=== PATIENT | female | born 1955 | race Caucasian/White ===

== ENCOUNTER 2025-04-21 04:53 | Observation (INO) ==
[2025-04-21 05:10] VITALS: BMI 28.1
--- NOTE | 2025-04-21 05:20 | DR.HTN ---
HPI <FADY RAMAN - Last Filed: 04/21/25 19:35> Time Seen Time Seen by Provider: 04/21/25 05:16 Primary Care Physician Primary Care Physician: Marycarmen Bowers HPI Comment HPI Comment: History as below. Complaints Chief Complaint Doctors Comments: Patient is 69yr old female in ER with headache, nausea with vomiting times one since last night. Pain worse today. Chief Complaint:: PT AMBULATORY IN ED WITH COMPLAINTS OF ELEVATED BP THROUGHOUT THE NIGHT WITH NAUSEA,HEADACHE AND INTERMITTENT CHEST PAINS. STATES SHE HAS A HX OF CHF AND WAS RECENTLY STARTED ON JARDIANCE HAS HAD SOME BILATERAL LEG SWELLING AND SOB. Self Treatment fo Chief Complaint: 0200:100MG LOSARTAN, 25MG METOPROLOL COVID-19 Coronavirus risk:travel/contact w/high risk person: No Has patient experienced Coronavirus symptoms: No Reviewed Nurses Notes Reviewed: Yes Source History Provided: Patient Mode of Arrival Mode of Arrival: Ambulatory Timing Onset of Chief Complaint: 04/21/25 PMH <FADY RAMAN - Last Filed: 04/21/25 19:35> PMH Past Medical History: Yes Past Medical History: Anxiety, Depression, Diabetes, Dyslipidemia, GERD, Gout, Hypertension and Hypothyroidism Past Surgical History: Yes Surgical History: Appendectomy, Cholecystectomy, Hysterectomy and Ortho Surgery Family History History of Family Medical Conditions: Yes Family Medical History: Cancer Travel Risk Coronavirus risk:travel/contact w/high risk person: No Has patient experienced Coronavirus symptoms: No Infectious screening Have you traveled outside the country in the last 6 months?: No Isolation: Standard ROS <FADY RAMAN - Last Filed: 04/21/25 19:35> Review of Systems Constitutional: No Symptoms Reported and See HPI; negative Fever Eyes: No Symptoms Reported ENTM: No Symptoms Reported and See HPI; negative Ear Pain, Nose Congestion or Throat Pain Respiratoy: No Symptoms Reported, See HPI, Moist Cough and Short of Breath Cardiovascular: No Symptoms Reported and See HPI Gastrointestinal/Abdominal: No Symptoms Reported and See HPI Genitourinary: No Symptoms Reported and See HPI Neurological: No Symptoms Reported and See HPI Musculoskeletal: No Symptoms Reported and See HPI Integumentary: No Symptoms Reported and See HPI Hematologic/Lymphatic: No Symptoms Reported Endocrine: No Symptoms Reported and See HPI Psychiatric: No Symptoms Reported and See HPI All Other Systems: Reviewed and Negative PE <FADY RAMAN - Last Filed: 04/21/25 19:35> Vital Signs Vitals: Vital Signs Temperature 98.0 F Pulse Rate 78 Pulse Rate 82 Pulse Rate 81 Pulse Rate 84 Pulse Rate 80 Pulse Rate 79 Pulse Rate 77 Pulse Rate 83 Pulse Rate 80 Pulse Rate 85 Pulse Rate 80 Pulse Rate 85 Pulse Rate 82 Pulse Rate 80 Pulse Rate 78 Pulse Rate 78 Pulse Rate 82 Pulse Rate 86 Respiratory Rate 24 Respiratory Rate 16 Respiratory Rate 32 Respiratory Rate 15 Respiratory Rate 20 Respiratory Rate 19 Respiratory Rate 26 Respiratory Rate 28 Respiratory Rate 20 Respiratory Rate 19 Respiratory Rate 15 Respiratory Rate 25 Respiratory Rate 13 Respiratory Rate 20 Respiratory Rate 20 Respiratory Rate 26 Respiratory Rate 23 Respiratory Rate 14 Respiratory Rate 15 Respiratory Rate 20 Blood Pressure 170/103 Blood Pressure 189/106 Blood Pressure 184/105 Blood Pressure 183/88 Blood Pressure 180/91 Blood Pressure 188/90 Blood Pressure 178/92 Blood Pressure 179/97 Blood Pressure 186/93 Blood Pressure 168/92 Blood Pressure 151/82 Blood Pressure 145/80 O2 Sat by Pulse Oximetry 99 O2 Sat by Pulse Oximetry 98 O2 Sat by Pulse Oximetry 97 O2 Sat by Pulse Oximetry 97 O2 Sat by Pulse Oximetry 97 O2 Sat by Pulse Oximetry 95 O2 Sat by Pulse Oximetry 96 O2 Sat by Pulse Oximetry 98 O2 Sat by Pulse Oximetry 96 O2 Sat by Pulse Oximetry 97 O2 Sat by Pulse Oximetry 97 O2 Sat by Pulse Oximetry 96 O2 Sat by Pulse Oximetry 97 O2 Sat by Pulse Oximetry 96 O2 Sat by Pulse Oximetry 97 O2 Sat by Pulse Oximetry 95 General Limitations: No Limitations General Appearance: Alert and In No Apparent Distress Head Head Exam: Normal Inspection Eyes Eye exam: Normal Appearance; negative Scleral Icterus or Conjunctival Injection ENT ENT Exam: Normal Exam, Normal Oropharynx, Normal External Ear Exam and TM's Normal Bilaterally Neck Neck Exam: Normal Inspection and Trachea Midline; negative Tenderness Chest Chest Inspection: Normal Inspection and Symmetric Chest Wall Rise; negative Tenderness Respiratory Respiratory Exam: Normal Lung Sounds Bilat; negative Accessory Muscle Use, Chest Wall Tenderness or Respiratory Distress Cardiovascular Cardiovascular Exam: Regular Rate, Normal Rhythm and Normal Heart Sounds; negative Systolic Murmur or Diastolic Murmur Abdominal Exam Abdominal Exam: Normal Inspection, Normal Bowel Sounds and Soft; negative Tenderness Extremities Extremities Exam: Normal Inspection and Normal Capillary Refill Back Back Exam: Normal Inspection; negative (R) CVA Tenderness or (L) CVA Tenderness Neurologic Neurological Exam: Alert, Oriented X3, CN II-XII Intact and Reflexes Normal; negative Motor Sensory Deficit Psychiatric Psychiatric Exam: Normal Affect and Normal Mood Skin Skin Exam: Warm and Intact <Adria Monk - Last Filed: 04/21/25 09:24> Vital Signs Vitals: Vital Signs Temperature 98.0 F Pulse Rate 78 Pulse Rate 82 Pulse Rate 81 Pulse Rate 84 Pulse Rate 80 Pulse Rate 79 Pulse Rate 77 Pulse Rate 83 Pulse Rate 80 Pulse Rate 85 Pulse Rate 80 Pulse Rate 85 Pulse Rate 82 Pulse Rate 80 Pulse Rate 78 Pulse Rate 78 Pulse Rate 82 Pulse Rate 86 Respiratory Rate 24 Respiratory Rate 16 Respiratory Rate 32 Respiratory Rate 15 Respiratory Rate 20 Respiratory Rate 19 Respiratory Rate 26 Respiratory Rate 28 Respiratory Rate 20 Respiratory Rate 19 Respiratory Rate 15 Respiratory Rate 25 Respiratory Rate 13 Respiratory Rate 20 Respiratory Rate 20 Respiratory Rate 26 Respiratory Rate 23 Respiratory Rate 14 Respiratory Rate 15 Respiratory Rate 20 Blood Pressure 170/103 Blood Pressure 189/106 Blood Pressure 184/105 Blood Pressure 183/88 Blood Pressure 180/91 Blood Pressure 188/90 Blood Pressure 178/92 Blood Pressure 179/97 Blood Pressure 186/93 Blood Pressure 168/92 Blood Pressure 151/82 Blood Pressure 145/80 O2 Sat by Pulse Oximetry 99 O2 Sat by Pulse Oximetry 98 O2 Sat by Pulse Oximetry 97 O2 Sat by Pulse Oximetry 97 O2 Sat by Pulse Oximetry 97 O2 Sat by Pulse Oximetry 95 O2 Sat by Pulse Oximetry 96 O2 Sat by Pulse Oximetry 98 O2 Sat by Pulse Oximetry 96 O2 Sat by Pulse Oximetry 97 O2 Sat by Pulse Oximetry 97 O2 Sat by Pulse Oximetry 96 O2 Sat by Pulse Oximetry 97 O2 Sat by Pulse Oximetry 96 O2 Sat by Pulse Oximetry 97 O2 Sat by Pulse Oximetry 95 MDM <FADY RAMAN - Last Filed: 04/21/25 19:35> Differential Diagnosis Differential Diagnosis: CHF ([place], PNEUMONIA, ), Hyertension, essential and Hypertensive urgency COURSE <FADY RAMAN - Last Filed: 04/21/25 19:35> Treatment Treatment: See orders done while patient was in ER. Patient, sign out to Dr. Monk at change of shift. Education/Counseling Education/Counseling: Patient and Family ROR <FADY RAMAN - Last Filed: 04/21/25 19:35> Labs Reviewed Laboratory Results Reviewed?: Yes 04/21/25 05:24 04/21/25 05:24 Laboratory: WBC 6.6 X10^3/uL (3.6-10.0) 04/21/25 05:24 RBC 3.66 X10^6/uL (3.5-5.4) 04/21/25 05:24 Hgb 10.9 g/dL (12.0-16.0) L 04/21/25 05:24 Hct 32.3 % (36.0-47.0) L 04/21/25 05:24 MCV 88.3 fL (80.0-100.0) 04/21/25 05:24 MCH 29.8 pg (27.0-34.0) 04/21/25 05:24 MCHC 33.8 g/dL (33.0-35.0) 04/21/25 05:24 RDW 18.0 % (11.6-16.5) H 04/21/25 05:24 Plt Count 318 X10^3/uL (150.0-450.0) 04/21/25 05:24 MPV 7.6 fL (7.4-11.0) 04/21/25 05:24 Neut % (Auto) 69.0 % (42.0-75.0) 04/21/25 05:24 Lymph % (Auto) 18.7 % (21.0-51.0) L 04/21/25 05:24 [place] % (Auto) 8.9 % (0.0-13.0) 04/21/25 05:24 Eos % (Auto) 2.6 % (0.9-2.9) 04/21/25 05:24 Baso % (Auto) 0.8 % (0.2-1.0) 04/21/25 05:24 Neut # (Auto) 4.5 x10^3/uL (2.2-4.8) 04/21/25 05:24 Lymph # (Auto) 1.2 X10^3/uL (1.3-2.9) L 04/21/25 05:24 [place] # (Auto) 0.6 x10^3/uL (0.3-0.8) 04/21/25 05:24 Eos # (Auto) 0.2 x10^3/uL (0.0-0.2) 04/21/25 05:24 Baso # (Auto) 0.1 X10^3/uL (0.0-0.1) 04/21/25 05:24 Absolute Nucleated RBC 0.1 /100WBC 04/21/25 05:24 Sodium 138 mmol/L (136-145) 04/21/25 05:24 Corrected Sodium TNP 04/21/25 05:24 Potassium 4.0 mmol/L (3.5-5.1) 04/21/25 05:24 Chloride 102 mmol/L (98-107) 04/21/25 05:24 Carbon Dioxide 22.9 mmol/L (21-32) 04/21/25 05:24 BUN 11 mg/dL (7-18) 04/21/25 05:24 Creatinine 0.97 mg/dL (0.55-1.02) 04/21/25 05:24 Est GFR (MDRD) Af Amer > 60 (>60) 04/21/25 05:24 Est GFR (MDRD) Non-Af > 60 (>60) 04/21/25 05:24 Glucose 81 mg/dL (65-99) 04/21/25 05:24 Calcium 9.8 mg/dL (8.5-10.1) 04/21/25 05:24 Corrected Calcium 10.4 mg/dL (8.5-10.1) H 04/21/25 05:24 Magnesium 1.8 mg/dL (2.0-2.9) L 04/21/25 07:10 Total Bilirubin 0.60 mg/dL (0.2-1.0) 04/21/25 05:24 AST 21 Units/L (15-37) 04/21/25 05:24 ALT 19 Units/L (12-78) 04/21/25 05:24 Alkaline Phosphatase 87 Units/L (46-116) 04/21/25 05:24 Creatine Kinase 112 Units/L (26-192) 04/21/25 05:24 Troponin I High Sens 109.5 ng/L (4.0-60.0) H* 04/21/25 07:10 B-Natriuretic Peptide 212 pg/mL (0-79) H 04/21/25 05:24 Total Protein 7.1 g/dL (6.4-8.2) 04/21/25 05:24 Albumin 3.2 g/dL (3.4-5.0) L 04/21/25 05:24 Globulin 3.9 g/dL (2.5-4.5) 04/21/25 05:24 Albumin/Globulin Ratio 0.8 Ratio (1.1-2.1) L 04/21/25 05:24 XRAY XRAY Interpreted by: Radiologist (Report noted.) and Self <Adria Monk - Last Filed: 04/21/25 09:24> Labs Reviewed Laboratory: WBC 6.6 X10^3/uL (3.6-10.0) 04/21/25 05:24 RBC 3.66 X10^6/uL (3.5-5.4) 04/21/25 05:24 Hgb 10.9 g/dL (12.0-16.0) L 04/21/25 05:24 Hct 32.3 % (36.0-47.0) L 04/21/25 05:24 MCV 88.3 fL (80.0-100.0) 04/21/25 05:24 MCH 29.8 pg (27.0-34.0) 04/21/25 05:24 MCHC 33.8 g/dL (33.0-35.0) 04/21/25 05:24 RDW 18.0 % (11.6-16.5) H 04/21/25 05:24 Plt Count 318 X10^3/uL (150.0-450.0) 04/21/25 05:24 MPV 7.6 fL (7.4-11.0) 04/21/25 05:24 Neut % (Auto) 69.0 % (42.0-75.0) 04/21/25 05:24 Lymph % (Auto) 18.7 % (21.0-51.0) L 04/21/25 05:24 [place] % (Auto) 8.9 % (0.0-13.0) 04/21/25 05:24 Eos % (Auto) 2.6 % (0.9-2.9) 04/21/25 05:24 Baso % (Auto) 0.8 % (0.2-1.0) 04/21/25 05:24 Neut # (Auto) 4.5 x10^3/uL (2.2-4.8) 04/21/25 05:24 Lymph # (Auto) 1.2 X10^3/uL (1.3-2.9) L 04/21/25 05:24 [place] # (Auto) 0.6 x10^3/uL (0.3-0.8) 04/21/25 05:24 Eos # (Auto) 0.2 x10^3/uL (0.0-0.2) 04/21/25 05:24 Baso # (Auto) 0.1 X10^3/uL (0.0-0.1) 04/21/25 05:24 Absolute Nucleated RBC 0.1 /100WBC 04/21/25 05:24 Sodium 138 mmol/L (136-145) 04/21/25 05:24 Corrected Sodium TNP 04/21/25 05:24 Potassium 4.0 mmol/L (3.5-5.1) 04/21/25 05:24 Chloride 102 mmol/L (98-107) 04/21/25 05:24 Carbon Dioxide 22.9 mmol/L (21-32) 04/21/25 05:24 BUN 11 mg/dL (7-18) 04/21/25 05:24 Creatinine 0.97 mg/dL (0.55-1.02) 04/21/25 05:24 Est GFR (MDRD) Af Amer > 60 (>60) 04/21/25 05:24 Est GFR (MDRD) Non-Af > 60 (>60) 04/21/25 05:24 Glucose 81 mg/dL (65-99) 04/21/25 05:24 Calcium 9.8 mg/dL (8.5-10.1) 04/21/25 05:24 Corrected Calcium 10.4 mg/dL (8.5-10.1) H 04/21/25 05:24 Magnesium 1.8 mg/dL (2.0-2.9) L 04/21/25 07:10 Total Bilirubin 0.60 mg/dL (0.2-1.0) 04/21/25 05:24 AST 21 Units/L (15-37) 04/21/25 05:24 ALT 19 Units/L (12-78) 04/21/25 05:24 Alkaline Phosphatase 87 Units/L (46-116) 04/21/25 05:24 Creatine Kinase 112 Units/L (26-192) 04/21/25 05:24 Troponin I High Sens 109.5 ng/L (4.0-60.0) H* 04/21/25 07:10 B-Natriuretic Peptide 212 pg/mL (0-79) H 04/21/25 05:24 Total Protein 7.1 g/dL (6.4-8.2) 04/21/25 05:24 Albumin 3.2 g/dL (3.4-5.0) L 04/21/25 05:24 Globulin 3.9 g/dL (2.5-4.5) 04/21/25 05:24 Albumin/Globulin Ratio 0.8 Ratio (1.1-2.1) L 04/21/25 05:24 Opioid <FADY RAMAN - Last Filed: 04/21/25 19:35> Opioid Risk Tool Age (Greyson box if 16-45): No History of Preadolescent Sexual Abuse: No Total: 0 Total Score Risk Category: Low Risk Copyright: Kory PETTIT predicting aberrant behaviors <Adria Monk - Last Filed: 04/21/25 09:24> Opioid Risk Tool Total: 0 Total Score Risk Category: Low Risk Discharge Plan Diagnosis Discharge Problem: Elevated troponin Chest pain Qualifiers: Chest pain type: precordial pain Qualified Code(s): R07.2 - Precordial pain Hypertension Qualifiers: Hypertension type: primary hypertension Qualified Code(s): I10 - Essential (primary) hypertension Nausea & vomiting Qualifiers: Vomiting type: unspecified Qualified Code(s): R11.2 - Nausea with vomiting, unspecified CHF (congestive heart failure) Qualifiers: Heart failure type: combined systolic and diastolic Heart failure chronicity: a cute Qualified Code(s): I50.41 - Acute combined systolic (congestive) and diastolic (congestive) heart failure Discharge Plan Patient Disposition: ADMITTED INPATIENT Condition: Stable ADDITIONAL NOTES <Adria Monk - Last Filed: 04/21/25 09:24> Additional Notes Additional Notes: Pt has no chest pain on re-exam. States she has had 2-3 episodes of chest pain since 2 am, each lasting 1-2 min, mild chest pressure. Denies any pain at this time. EKG shows no signs of ischemia. 1st and 2nd troponin elevated at 100 & 108, spoke with Dr Nowak who agrees to consult on pt after admission. Spoke with Dr Mckee who agrees to admit pt.
--- NOTE | 2025-04-21 05:32 | EKG ---
Test Reason : chest pain Blood Pressure : */* mmHG Vent. Rate : 78 BPM Atrial Rate : 78 BPM P-R Int : 142 ms QRS Dur : 108 ms QT Int : 396 ms P-R-T Axes : 22 -18 3 degrees QTc Int : 451 ms Normal sinus rhythm Moderate voltage criteria for LVH, may be normal variant ( R in aVL , Dieter product ) Septal infarct , age undetermined Abnormal ECG No previous ECGs available Confirmed by Eliud Nowak MD ([id number]) on 04/21/2025 7:05:25 AM Referred By: Confirmed By: Eliud Nowak MD
[2025-04-21 05:34] LABS: BASOPHILS # (AUTO) 0.1 X10^3/uL (0.0-0.1); BASOPHILS % (AUTO) 0.8 % (0.2-1.0); EOSINOPHILS # (AUTO) 0.2 x10^3/uL (0.0-0.2); EOSINOPHILS % (AUTO) 2.6 % (0.9-2.9); HEMATOCRIT 32.3 % (36.0-47.0); HEMOGLOBIN 10.9 g/dL (12.0-16.0); LYMPHOCYTES # (AUTO) 1.2 X10^3/uL (1.3-2.9); LYMPHOCYTES % (AUTO) 18.7 % (21.0-51.0); MEAN CORPUSCULAR HEMOGLOBIN 29.8 pg (27.0-34.0); MEAN CORPUSCULAR HGB CONC 33.8 g/dL (33.0-35.0); MEAN CORPUSCULAR VOLUME 88.3 fL (80.0-100.0); MEAN PLATELET VOLUME 7.6 fL (7.4-11.0); MONOCYTES # (AUTO) 0.6 x10^3/uL (0.3-0.8); MONOCYTES % (AUTO) 8.9 % (0.0-13.0); NEUTROPHILS # (AUTO) 4.5 x10^3/uL (2.2-4.8); PLATELET COUNT 318 X10^3/uL (150.0-450.0); RED BLOOD COUNT 3.66 X10^6/uL (3.5-5.4); WHITE BLOOD COUNT 6.6 X10^3/uL (3.6-10.0)
[2025-04-21 05:59] LABS: ALANINE AMINOTRANSFERASE 19 Units/L (12-78); ALBUMIN 3.2 g/dL (3.4-5.0); ALKALINE PHOSPHATASE 87 Units/L (46-116); ASPARTATE AMINO TRANSFERASE 21 Units/L (15-37); BLOOD UREA NITROGEN 11 mg/dL (7-18); CALCIUM 9.8 mg/dL (8.5-10.1); CARBON DIOXIDE 22.9 mmol/L (21-32); CHLORIDE 102 mmol/L (98-107); COR CA(FOR HYPOALB) 10.4 mg/dL (8.5-10.1); CREATINE KINASE 112 Units/L (26-192); CREATININE 0.97 mg/dL (0.55-1.02); GLUCOSE 81 mg/dL (65-99); SODIUM 138 mmol/L (136-145); TOTAL PROTEIN 7.1 g/dL (6.4-8.2); eGFR NON BLACK RACES > 60 (>60)
[2025-04-21] MEDS: PERCOCET TAB 5/325 MG PO ONE (07:13)
[2025-04-21] MEDS: COZAAR PO ONE (07:17)
--- NOTE | 2025-04-21 07:28 | CT ---
EXAM: BRAIN W/O CON HISTORY: PT AMBULATORY IN ED WITH COMPLAINTS OF ELEVATED BP THROUGHOUT THE NIGHT WITH NAUSEA,HEADACHE ; CHF, GERD, DM, HTN SX: APPY, DEACON, HYST, ORTHO COMPARISON: 05/23/2023 TECHNIQUE: CT of the head obtained without IV contrast. Sagittal and coronal reformatted images were performed. Dose reduction techniques including Automated Exposure Control (AEC) and adjustment of mA and kV were utilized. FINDINGS: No evidence of acute territorial infarct. No acute intracranial hemorrhage. No evidence of intracranial mass or midline shift. No hydrocephalus. No abnormal intra or extra-axial fluid collections. Chronic small vessel ischemic changes and global volume loss with commensurate ventricular dilatation. The calvaria is intact. The bilateral mastoid air cells and visualized paranasal sinuses are well pneumatized. The bilateral orbits are unremarkable. IMPRESSION: No acute intracranial findings. THIS IS AN ELECTRONICALLY VERIFIED FINAL REPORT 04/21/2025 7:20 AM - Electronically signed by Sarbijt Sloan MD
[2025-04-21] MEDS: MAG-OX TAB PO ONE (08:10)
[2025-04-21] MEDS: PROTONIX INJ 40 MG VIAL IVP ONE (08:31)
[2025-04-21] MEDS: APRESOLINE INJ 20 MG VIAL IVP ONE (08:33)
--- NOTE | 2025-04-21 08:47 | RAD ---
EXAM: CHEST, 1 VIEW HISTORY: CHEST PAIN; DM, GERD, HTN SX: APPY, DEACON, HYST, ORTHO COMPARISON: 02/13/2025 TECHNIQUE: AP portable FINDINGS: Prominent cardiac silhouette, accentuated by AP technique. No focal consolidation, pleural effusion, or visible pneumothorax. IMPRESSION: No acute cardiopulmonary findings. THIS IS AN ELECTRONICALLY VERIFIED FINAL REPORT 04/21/2025 8:43 AM - Electronically signed by Anthony Martinez MD
[2025-04-21] MEDS: ZOFRAN INJ 4 MG VIAL IVP ONE (09:23)
[2025-04-21] MEDS ORDERED: NS 1,000 ML IV 1,000 ML ONE (11:05)
[2025-04-21] MEDS: NS 1,000 ML IV 1,000 ML IV SCH (11:19)
--- NOTE | 2025-04-21 11:20 | EKG ---
Test Reason : Elevated Troponin Blood Pressure : */* mmHG Vent. Rate : 77 BPM Atrial Rate : 77 BPM P-R Int : 152 ms QRS Dur : 106 ms QT Int : 402 ms P-R-T Axes : 57 -16 -9 degrees QTc Int : 454 ms Normal sinus rhythm Moderate voltage criteria for LVH, may be normal variant ( R in aVL , Dieter product ) T wave abnormality, consider anterolateral ischemia Abnormal ECG When compared with ECG of 21-APR-2025 05:28, Inverted T waves have replaced nonspecific T wave abnormality in Anterior leads Confirmed by Eliud Nowak MD ([id number]) on 04/21/2025 11:22:56 AM Referred By: Confirmed By: Eliud Nowak MD
[2025-04-21] MEDS ORDERED: APRESOLINE INJ 20 MG VIAL IVP PRN (12:52)
--- NOTE | 2025-04-21 13:21 | DR.CONSULT ---
CONSULT Consultation for Day of: Date: 04/21/25 Chief Complaint Chief Complaint: htn/cp Allergies Allergies Allergy/AdvReac Type Severity Reaction Status Date / Time Sulfa (Sulfonamide AdvReac Verified 04/21/25 05:10 Antibiotics) History of Present Illness History of Present Illness: 69 yo female- got stent to ostial r[facility] ( [facility])- came back after stent w cp/high bp and positive trop just like today- cp lasted 10 min- bp 190 for 3 days- very sob- takes meds as she feels- on arb at 100 bid- higher than recommended dose- also on bb/ccb for htn- nabil notes states hctz but not on her list- states asa/plavix/statin/zetia as well. ekg : minor t abl, Past Medical History Past Medical History: Anxiety, Depression, Diabetes, Dyslipidemia, GERD, Gout, Hypertension and Hypothyroidism Past Surgical History Surgical History: Appendectomy, Cholecystectomy, Hysterectomy, Joint Replacement and Tonsillectomy Family History Family Medical History: Cancer Social History Type of Tobacco Use: None Alcohol Use: None Drug Use: None Medications Home Medications: Sulfa (Sulfonamide Antibiotics) Adverse Reaction (Verified 04/21/25 05:10) CONTINUE taking the following medications allopurinol 300 mg tablet 300 mg PO QDAY 04/21/25 [History] aspirin 81 mg tablet 81 mg PO QDAY 04/21/25 [History] benzonatate 200 mg capsule 200 mg PO DAILY PRN 04/21/25 [History] budesonide 160 mcg-glycopyr 9 mcg-formot 4.8 mcg/actuation HFA inhaler (Breztri Aerosphere) 2 inh inhalation QAM AND QPM 04/21/25 [History] bupropion HCl 300 mg 24 hr tablet, extended release (Wellbutrin XL) 300 mg PO QAM 04/21/25 [History] buspirone 15 mg tablet 7.5 mg PO BID PRN 04/21/25 [History] clopidogrel 75 mg tablet (Plavix) 75 mg PO QDAY 04/21/25 [History] coQ10 (ubiquinol) 200 mg capsule 800 mg PO QDAY 04/21/25 [History] empagliflozin 25 mg tablet (Jardiance) 25 mg PO QDAY 04/21/25 [History] ergocalciferol (vitamin D2) 1,250 mcg (50,000 unit) capsule (Vitamin D2) 1,250 mcg PO QWEEK 04/21/25 [History] ezetimibe 10 mg tablet (Zetia) 10 mg PO QDAY 04/21/25 [History] hydrochlorothiazide 50 mg tablet 50 mg PO DAILY PRN 04/21/25 [History] levalbuterol tartrate 45 mcg/actuation aerosol inhaler (Xopenex HFA) 1 puff inhalation Q6H PRN 04/21/25 [History] levocetirizine 5 mg tablet (Xyzal) 5 mg PO QDAY PRN 04/21/25 [History] levothyroxine 88 mcg tablet (Synthroid) 88 mcg PO QAM 04/21/25 [History] liothyronine 5 mcg tablet 5 mcg PO QAM 04/21/25 [History] losartan 100 mg tablet 100 mg PO BID 04/21/25 [History] metformin 500 mg tablet 500 mg PO BID 04/21/25 [History] pregabalin 150 mg capsule (Lyrica) 150 mg PO TID 04/21/25 [History] rosuvastatin 10 mg tablet (Crestor) 10 mg PO QDAY 04/21/25 [History] tirzepatide 15 mg/0.5 mL subcutaneous pen injector (Mounjaro) 15 mg subcut QWEEK 04/21/25 [History] tolterodine 4 mg capsule,extended release 24 hr (Detrol LA) 4 mg PO QDAY PRN 04/21/25 [History] Physical Exam Vital Signs: Vital Signs Temperature 97.8 F Temperature 97.8 F Pulse Rate [Bilateral Radial] 76 Pulse Rate [Bilateral Radial] 76 Pulse Rate 79 Pulse Rate 76 Pulse Rate 75 Pulse Rate 80 Pulse Rate 80 Pulse Rate 85 Pulse Rate 77 Pulse Rate 80 Pulse Rate 78 Pulse Rate 82 Pulse Rate 81 Pulse Rate 84 Pulse Rate 80 Pulse Rate 79 Pulse Rate 77 Pulse Rate 83 Pulse Rate 80 Pulse Rate 85 Pulse Rate 80 Pulse Rate 85 Pulse Rate 82 Pulse Rate 80 Pulse Rate 78 Pulse Rate 78 Pulse Rate 82 Respiratory Rate 20 Respiratory Rate 20 Respiratory Rate 20 Respiratory Rate 22 Respiratory Rate 14 Respiratory Rate 21 Respiratory Rate 15 Respiratory Rate 14 Respiratory Rate 32 Respiratory Rate 22 Respiratory Rate 26 Respiratory Rate 24 Respiratory Rate 16 Respiratory Rate 32 Respiratory Rate 15 Respiratory Rate 20 Respiratory Rate 19 Respiratory Rate 26 Respiratory Rate 28 Respiratory Rate 20 Respiratory Rate 19 Respiratory Rate 15 Respiratory Rate 25 Respiratory Rate 13 Respiratory Rate 20 Respiratory Rate 20 Respiratory Rate 26 Respiratory Rate 23 Respiratory Rate 14 Respiratory Rate 15 Blood Pressure [Left Arm] 165/83 Blood Pressure [Left Arm] 165/83 Blood Pressure 180/84 Blood Pressure 178/87 Blood Pressure 171/84 Blood Pressure 176/87 Blood Pressure 171/86 Blood Pressure 182/103 Blood Pressure 170/103 Blood Pressure 189/106 Blood Pressure 184/105 Blood Pressure 183/88 Blood Pressure 180/91 Blood Pressure 188/90 Blood Pressure 178/92 Blood Pressure 179/97 Blood Pressure 186/93 Blood Pressure 168/92 Blood Pressure 151/82 O2 Sat by Pulse Oximetry 97 O2 Sat by Pulse Oximetry 97 O2 Sat by Pulse Oximetry 99 O2 Sat by Pulse Oximetry 98 O2 Sat by Pulse Oximetry 97 O2 Sat by Pulse Oximetry 97 O2 Sat by Pulse Oximetry 97 O2 Sat by Pulse Oximetry 95 O2 Sat by Pulse Oximetry 96 O2 Sat by Pulse Oximetry 98 O2 Sat by Pulse Oximetry 96 O2 Sat by Pulse Oximetry 97 O2 Sat by Pulse Oximetry 97 O2 Sat by Pulse Oximetry 96 O2 Sat by Pulse Oximetry 97 O2 Sat by Pulse Oximetry 96 O2 Sat by Pulse Oximetry 97 alert ox3 nad b bruits clera lungs rrr soft faisal no edema labs: hct 32 k 4.0 cr0.97 bnp 212 trops 100-109-112 cxr: nad brain ct: nad Plan (1) Elevated troponin: Status: Acute (2) Hypertension: Status: Acute Qualifiers: Hypertension type: primary hypertension Qualified Code(s): I10 - Essential (primary) hypertension Plan: resume meds- bb/arb/ccb- would like to cut back arb to 100mg- and push other meds- adding back diuretic next to come- hydralazine prn > 160 (3) Chest pain: Status: Acute Qualifiers: Chest pain type: precordial pain Qualified Code(s): R07.2 - Precordial pain Narrative Support Text: 10 min of cp- flat trops- ns t on ekg- not felt to be injury (4) Elevated brain natriuretic peptide (BNP) level: Status: Acute Narrative Support Text: get bp down- consider adding back hctz for htn/bnp (5) Carotid bruit: Status: Acute Plan: check dopplers
[2025-04-21] MEDS: DUONEB 0.5 MG/3 MG (3 mL) NEB SCH (13:39)
--- NOTE | 2025-04-21 15:16 | VAS ---
EXAM: CAROTID US HISTORY: HTN, ELEVATED TROPONIN; COMPARISON: None available. TECHNIQUE: Multiple kumar scale, duplex and color flow Doppler images of the right and left carotid arterial system were obtained. The vertebral arterial system was evaluated as well. FINDINGS: Nonocclusive color flow Doppler is seen throughout the right and left carotid arterial system. Abnormally elevated velocities are seen within the right internal carotid artery in the severe or 70-90% stenosis range. Abnormally elevated carotid velocities are seen within the left CCA arteries in the 50-69% stenosis range. There is [id number] atherosclerotic plaque formation of the bilateral carotid bulbs and proximal ICAs with associated intimal thickening but without evidence for any additional high-grade stenosis (>70%) or occlusion of the carotid arteries. The right and left vertebral artery demonstrate antegrade flow. There is patent flow and normal duplex waveforms within the right and left external carotid arteries. Peak right ICA velocity: 236 centimeter/seconds. Peak right CCA velocity: 54 centimeter/seconds. Right ICA to CCA ratio: 5.1. Peak left ICA velocity: 150 centimeter/seconds. Peak left CCA velocity: 63 centimeter/seconds. Left ICA to CCA ratio: 2.8. IMPRESSION: Abnormally elevated velocities are seen within the right internal carotid artery in the severe or 70-90% stenosis range. Abnormally elevated carotid velocities are seen within the left CCA arteries in the 50-69% stenosis range. There is [id number] atherosclerotic plaque formation of the bilateral carotid bulbs and proximal ICAs with associated intimal thickening but without evidence for any additional high-grade stenosis (>70%) or occlusion of the carotid arteries. THIS IS AN ELECTRONICALLY VERIFIED FINAL REPORT 04/21/2025 3:12 PM - Electronically signed by Abdiaziz Babcock MD
[2025-04-21] MEDS: PROCARDIA XL 24-HR PO SCH (16:15)
[2025-04-21] MEDS: LYRICA CAP 150 mg PO SCH (16:15)
[2025-04-21] MEDS ORDERED: TYLENOL 325 MG TAB PO ONE (16:35)
[2025-04-21] MEDS: TYLENOL 325 MG TAB PO PRN (16:40)
--- NOTE | 2025-04-21 16:55 | EKG ---
Test Reason : Elevated Troponin Blood Pressure : */* mmHG Vent. Rate : 77 BPM Atrial Rate : 77 BPM P-R Int : 120 ms QRS Dur : 102 ms QT Int : 426 ms P-R-T Axes : 21 -14 -8 degrees QTc Int : 482 ms Normal sinus rhythm Minimal voltage criteria for LVH, may be normal variant ( [place] product ) Borderline ECG When compared with ECG of 21-APR-2025 11:01, T wave inversion no longer evident in Lateral leads Confirmed by Eliud Nowak MD ([id number]) on 04/21/2025 7:25:06 PM Referred By: Confirmed By: Eliud Nowak MD
[2025-04-21] MEDS: PULMICORT NEB TX 0.5 MG NEB SCH (20:03)
[2025-04-21] MEDS: COZAAR PO SCH (21:21)
[2025-04-21] MEDS: GLUCOPHAGE PO SCH (21:21)
[2025-04-21] MEDS: GLUCOPHAGE ONE (21:22)
--- NOTE | 2025-04-21 22:26 | EKG ---
Test Reason : Elevated Troponin Blood Pressure : */* mmHG Vent. Rate : 75 BPM Atrial Rate : 75 BPM P-R Int : 142 ms QRS Dur : 108 ms QT Int : 434 ms P-R-T Axes : 32 -23 -23 degrees QTc Int : 484 ms Normal sinus rhythm Moderate voltage criteria for LVH, may be normal variant ( R in aVL , Dieter product ) T wave abnormality, consider anterolateral ischemia Prolonged QT Abnormal ECG When compared with ECG of 21-APR-2025 16:32, T wave inversion now evident in Lateral leads Confirmed by Eliud Nowak MD ([id number]) on 04/22/2025 5:35:35 AM Referred By: Confirmed By: Eliud Nowak MD
[2025-04-21] MEDS: RESTORIL CAP 15 MG PO PRN (22:52)
[2025-04-22 06:06] LABS: EOSINOPHILS # (AUTO) 0.1 x10^3/uL (0.0-0.2); EOSINOPHILS % (AUTO) 3.9 % (0.9-2.9); HEMATOCRIT 28.6 % (36.0-47.0); HEMOGLOBIN 9.6 g/dL (12.0-16.0); LYMPHOCYTES # (AUTO) 1.4 X10^3/uL (1.3-2.9); LYMPHOCYTES % (AUTO) 40.7 % (21.0-51.0); MEAN CORPUSCULAR HEMOGLOBIN 29.9 pg (27.0-34.0); MEAN CORPUSCULAR HGB CONC 33.8 g/dL (33.0-35.0); MEAN CORPUSCULAR VOLUME 88.5 fL (80.0-100.0); MEAN PLATELET VOLUME 7.7 fL (7.4-11.0); MONOCYTES # (AUTO) 0.5 x10^3/uL (0.3-0.8); MONOCYTES % (AUTO) 12.9 % (0.0-13.0); NEUTROPHILS # (AUTO) 1.5 x10^3/uL (2.2-4.8); NEUTROPHILS % (AUTO) 41.5 % (42.0-75.0); PLATELET COUNT 283 X10^3/uL (150.0-450.0); RED BLOOD COUNT 3.23 X10^6/uL (3.5-5.4); RED CELL DISTRIBUTION WIDTH 17.2 % (11.6-16.5); WHITE BLOOD COUNT 3.5 X10^3/uL (3.6-10.0)
[2025-04-22 06:10] LABS: INR 1.04 (0.8-1.3)
--- NOTE | 2025-04-22 06:13 | RAD ---
EXAM: CHEST, 1 VIEW HISTORY: ELEVATED TROPONIN; DM, GERD, GOUT, HTN SX: APPY, DEACON, HYST, ORTHO COMPARISON: Prior study or studies were utilized for comparison during interpretation with the most relevant dated 04/21/2025 TECHNIQUE: CHEST, 1 VIEW FINDINGS: Chest: Lines and tubes: Cardiac leads overlie the chest. Mediastinum: Cardiac and mediastinal shadow is within normal limits for size and contour. Pulmonary vessels: No pulmonary vascular congestion. Lung isabel: No suspicious airspace opacity. Pleura: No effusion. No pneumothorax. Bones and soft tissues: No acute osseous or soft tissue abnormality. IMPRESSION: 1. No acute cardiopulmonary abnormality THIS IS AN ELECTRONICALLY VERIFIED FINAL REPORT 04/22/2025 6:10 AM - Electronically signed by Beni Chandra MD
[2025-04-22 06:25] LABS: ALANINE AMINOTRANSFERASE 16 Units/L (12-78); ALKALINE PHOSPHATASE 67 Units/L (46-116); ASPARTATE AMINO TRANSFERASE 14 Units/L (15-37); BLOOD UREA NITROGEN 9 mg/dL (7-18); CARBON DIOXIDE 24.2 mmol/L (21-32); CHLORIDE 107 mmol/L (98-107); CHOL/HDL RATIO 2.6 (0.0-5.0); CHOLESTEROL 74 mg/dL (0-200); COR CA(FOR HYPOALB) 9.8 mg/dL (8.5-10.1); CREATININE 0.91 mg/dL (0.55-1.02); GLUCOSE 79 mg/dL (65-99); HDL CHOLESTEROL 29 mg/dL (40-60); MAGNESIUM 1.6 mg/dL (2.0-2.9); POTASSIUM 3.6 mmol/L (3.5-5.1); SODIUM 142 mmol/L (136-145); TOTAL PROTEIN 6.8 g/dL (6.4-8.2); TRIGLYCERIDES 71 mg/dL (0-150); eGFR NON BLACK RACES > 60 (>60)
[2025-04-22] MEDS ORDERED: CONSULT PHARMACY - POTASSIUM & MAGNESIUM XX SCH ×2 (07:00→08:00)
[2025-04-22] MEDS: MAG-OX TAB ONE (07:03)
[2025-04-22] MEDS: ZOFRAN INJ 4 MG VIAL ONE (07:04)
[2025-04-22] MEDS: APRESOLINE INJ 20 MG VIAL ONE (07:04)
[2025-04-22] MEDS: PULMICORT NEB TX 0.5 MG NEB ONE (07:04)
[2025-04-22] MEDS: PROTONIX INJ 40 MG VIAL ONE (07:04)
[2025-04-22] MEDS: MAG-OX TAB PO SCH (08:31)
[2025-04-22] MEDS: FARXIGA PO SCH (08:31)
[2025-04-22] MEDS: CRESTOR TAB 10 MG PO SCH (08:32)
[2025-04-22] MEDS: K-DUR TAB 20 MEQ PO SCH (08:32)
[2025-04-22] MEDS: WELLBUTRIN XL 300 MG (DAILY) PO SCH (08:32)
[2025-04-22] MEDS: SYNTHROID 88 mcg TAB PO SCH (08:32)
[2025-04-22] MEDS: PLAVIX PO SCH (08:32)
[2025-04-22] MEDS: ASPIRIN EC 81 MG PO SCH (08:32)
[2025-04-22] MEDS: ZYLOPRIM PO SCH (08:32)
[2025-04-22] MEDS: GLUCOPHAGE ONE ×2 (08:33→22:04)
[2025-04-22] MEDS: ZETIA TAB 10 MG PO SCH (08:34)
[2025-04-22] MEDS: COZAAR PO SCH (08:34)
[2025-04-22] MEDS: TOPROL XL PO SCH (08:34)
[2025-04-22] MEDS: LIOTHYRONINE 5 MCG PO SCH (08:46)
[2025-04-22] MEDS ORDERED: COQ10 200 MG PO SCH (09:00)
[2025-04-22] MEDS ORDERED: ZyrTEC TAB 10 MG PO PRN (09:38)
[2025-04-22] MEDS ORDERED: BUSPAR PO PRN (09:38)
[2025-04-22] MEDS: MAGNESIUM SULFATE 1 GRAM/100 mL PREMIX 1 G/100 ML BAG IV SCH (10:01)
[2025-04-22] MEDS: DETROL LA 4 MG CAP EXT REL PO SCH (10:01)
--- NOTE | 2025-04-22 13:51 | NOTE.SOAP ---
Soap Note Note for Day of Date of Exam: 04/22/25 Subjective Data Subjective Data: no c/o Objective Data Objective Data: bp low after po losartan/procardia yesterday night- dopplers: > 70% r/50-69% left- Assessment Assessment: cad stent- recent trop bump- severe carotid disease on right/mod on left/htn r/o renal artery disease Plan Plan: arrange transfer in am [facility]/renals/carotids plus /minus carotid stenting in candidate
[2025-04-22] MEDS: PROCARDIA XL 24-HR PO SCH (21:01)
[2025-04-22 23:56] VITALS: RESP 20
[2025-04-23 04:50] VITALS: BP 148/67; PULSE 79; TEMP 97.6; O2SAT 96
[2025-04-23 06:07] LABS: BASOPHILS # (AUTO) 0.1 X10^3/uL (0.0-0.1); BASOPHILS % (AUTO) 1.4 % (0.2-1.0); EOSINOPHILS # (AUTO) 0.3 x10^3/uL (0.0-0.2); EOSINOPHILS % (AUTO) 5.7 % (0.9-2.9); HEMATOCRIT 29.4 % (36.0-47.0); HEMOGLOBIN 9.9 g/dL (12.0-16.0); LYMPHOCYTES # (AUTO) 1.5 X10^3/uL (1.3-2.9); LYMPHOCYTES % (AUTO) 32.7 % (21.0-51.0); MEAN CORPUSCULAR HEMOGLOBIN 29.8 pg (27.0-34.0); MEAN CORPUSCULAR HGB CONC 33.6 g/dL (33.0-35.0); MEAN CORPUSCULAR VOLUME 88.5 fL (80.0-100.0); MEAN PLATELET VOLUME 7.7 fL (7.4-11.0); MONOCYTES # (AUTO) 0.4 x10^3/uL (0.3-0.8); MONOCYTES % (AUTO) 9.4 % (0.0-13.0); NEUTROPHILS # (AUTO) 2.3 x10^3/uL (2.2-4.8); NEUTROPHILS % (AUTO) 50.8 % (42.0-75.0); PLATELET COUNT 289 X10^3/uL (150.0-450.0); RED BLOOD COUNT 3.32 X10^6/uL (3.5-5.4); RED CELL DISTRIBUTION WIDTH 17.9 % (11.6-16.5); WHITE BLOOD COUNT 4.6 X10^3/uL (3.6-10.0)
[2025-04-23] MEDS: D50W ABBOJECT SYR IV ONE (06:19)
[2025-04-23 06:24] LABS: ALANINE AMINOTRANSFERASE 14 Units/L (12-78); ALBUMIN 3.1 g/dL (3.4-5.0); ALKALINE PHOSPHATASE 69 Units/L (46-116); ASPARTATE AMINO TRANSFERASE 18 Units/L (15-37); BLOOD UREA NITROGEN 9 mg/dL (7-18); CARBON DIOXIDE 24.7 mmol/L (21-32); CHLORIDE 108 mmol/L (98-107); COR CA(FOR HYPOALB) 9.7 mg/dL (8.5-10.1); CREATININE 0.95 mg/dL (0.55-1.02); GLUCOSE 76 mg/dL (65-99); POTASSIUM 3.9 mmol/L (3.5-5.1); SODIUM 141 mmol/L (136-145); eGFR NON BLACK RACES > 60 (>60)
[2025-04-27] MEDS ORDERED: VITAMIN D (1.25MG) PO SCH (11:13)
== END 2025-04-23 06:50 | disposition critical access hospital (66) ==
LOC: ER 04:53 → MED/SURG 04:53
PROVIDERS: ADMIT Obstetrics & Gynecology Obstetrics; ATTEND Obstetrics & Gynecology Obstetrics
DX: R07.89 Other chest pain; F41.8 Other specified anxiety disorders; R51.9 Headache, unspecified; R06.02 Shortness of breath; R01.1 Cardiac murmur, unspecified; R09.89 Other specified symptoms and signs involving the circulatory and respiratory systems; E78.5 Hyperlipidemia, unspecified; Z98.890 Other specified postprocedural states; E11.65 Type 2 diabetes mellitus with hyperglycemia; I50.41 Acute combined systolic (congestive) and diastolic (congestive) heart failure; R11.2 Nausea with vomiting, unspecified; Z99.81 Dependence on supplemental oxygen; I25.10 Atherosclerotic heart disease of native coronary artery without angina pectoris; R94.31 Abnormal electrocardiogram [ECG] [EKG]; R60.0 Localized edema; I11.0 Hypertensive heart disease with heart failure; K21.9 Gastro-esophageal reflux disease without esophagitis; R79.89 Other specified abnormal findings of blood chemistry; E03.8 Other specified hypothyroidism